=== PATIENT | female | born 1940 | race Caucasian/White ===

== ENCOUNTER 2019-02-28 13:27 | Inpatient (IN) | payer MEDICARE ==
[~2019-02-28] VITALS: Ht 165.1 cm; Wt 64.1 kg
[2019-02-28 13:58] LABS: BASOPHILS % (AUTO) 0.1 % (0.0-5.0); EOSINOPHILS % (AUTO) 0.2 % (0.0-8.0); HEMATOCRIT 40.3 % (36-48); LYMPHOCYTES % (AUTO) 12.2 % (21.0-51.0); MEAN CORPUSCULAR HEMOGLOBIN 32.6 pg (27.0-33.0); MEAN CORPUSCULAR HGB CONC 33.1 g/dL (32.0-36.0); MEAN CORPUSCULAR VOLUME 98.5 fL (79-99); MONOCYTES % (AUTO) 9.1 % (3.0-13.0); NEUTROPHILS % (AUTO) 78.4 % (40.0-77.0); PLATELET COUNT (AUTO) 147 K/uL (130-400); RED BLOOD CELL COUNT(AUTO) 4.09 MIL/uL (4.00-5.50); RED CELL DISTRIBUTION WIDTH 13.6 % (11.0-15.5); WHITE BLOOD COUNT (AUTO) 12.1 K/uL (4.8-10.8)
[2019-02-28 14:09] LABS: APPEARANCE,URINE CLOUDY (CLEAR); BILIRUBIN,URINE NEGATIVE (NEGATIVE); COLOR,URINE YELLOW (YELLOW); GLUCOSE, URINE (UA) NEGATIVE (NEGATIVE); KETONES,URINE 5 mg/dL (NEGATIVE); LEUKOCYTE ESTERASE ,URINE LARGE (NEGATIVE); NITRATE,URINE POSITIVE (NEGATIVE); OCCULT BLOOD,URINE MODERATE (NEGATIVE); PH,URINE 6.5 (5.0-8.0); PROTEIN,URINE 100 mg/dL (NEGATIVE)
[2019-02-28 14:16] LABS: BACTERIA,URINE Many /HPF (None Seen); MUCUS,URINE Few LPF (None Seen); RBC,URINE 0-1 /HPF (0-1); SQUAMOUS EPITHELIAL CELL,UR Rare /HPF (0-2); WBC,URINE >100 /HPF (0-1)
[2019-02-28 14:18] LABS: INR 1.03 (0.85-1.15); PARTIAL THROMBOPLASTIN TIME 24.6 SEC (26.3-35.5); PROTHROMBIN TIME 10.8 SEC (9.6-11.6)
[2019-02-28 14:26] LABS: ALBUMIN 2.6 g/dL (3.5-5.0); BILIRUBIN,TOTAL 0.5 mg/dL (0.2-1.0); TOTAL PROTEIN, SERUM 7.2 g/dL (6.0-8.3)
[2019-02-28] MEDS ORDERED: CEFTRIAXONE SODIUM 1 GM ONE (14:52)
[2019-02-28] MEDS ORDERED: SODIUM CHLORIDE 0.9% 1000ML 1,000 ML IV ONE (14:52)
[2019-02-28] MEDS ORDERED: SODIUM CHLORIDE 0.9% 100 ML IV ONE (14:53)
--- NOTE | 2019-02-28 16:00 | NUR ---
ADMISSION FROM ER. PER SERVICE OF .DR. DAVE. PT HAS HER EYES OPEN . BUT NON VERBAL , MOUTH . LIPS VERY DRY, HOB UP. PER YESSICA TENA INFORMATION . SHE IS STA [place]AL[place] AT THE [facility] AND HAS NOT BEEN EATING , AND UNABLE TO SWALLOW. PT .WILL NOT OPEN HER MOUTH TO CLEAN THE INSIDE, AND WILL TRY TO HIT YOU.. IVF SETUP OF NS AT 85 [facility] AND RESTARTED A PIV TO HER RFA. UNDER ASPECT TECH, DUE TO THE OTHER IV THAT WAS ON HER LT HAND CAME OUT. LT HAND NOTED BRUISED . . REVIEW PLAN OF CARE. AND WILL PLACE ORDERS FOR A SWALLOWING MELANIE T FOR AM. HOB UP. . CALL LIGHT IN REACH FOR DAUGHTER CARE. BED LEVEL DOWN.
[2019-02-28 16:05] VITALS: BP 162/90
--- NOTE | 2019-02-28 17:26 | NUR ---
[facility] HOSES ON.
[2019-02-28] MEDS: SODIUM CHLORIDE 0.9% 1000ML 1,000 ML IV SCH ×2 (18:00→21:02)
[2019-02-28] MEDS ORDERED: QUET50TA55 PO (19:49)
[2019-02-28] MEDS ORDERED: SIMV-43 PO (19:49)
[2019-02-28] MEDS ORDERED: DIVA-76 PO (19:49)
[2019-02-28] MEDS ORDERED: QUET100T70 PO (19:49)
[2019-02-28] MEDS ORDERED: ESCI20TA36 PO (19:49)
[2019-02-28] MEDS ORDERED: ERGO500014 PO (19:49)
[2019-02-28] MEDS ORDERED: MEMA10TA20 PO (19:49)
[2019-02-28] MEDS ORDERED: FLUO20CA30 PO (19:49)
[2019-02-28 20:00] VITALS: BP 151/72
--- NOTE | 2019-02-28 21:05 | NUR ---
ASSESS SHIFT ASSESSMENT DONE, PLEASE REFER TO CHART. NEW IVF BAG HUNG. KEPT RESTED AND COMFORTABLE. CALL LIGHT WITHIN REACH. BED ALARM ON. WILL MONITOR CLOSELY. Addendum: 03/01/19 at 0330 by RAUL URIAS RN RN Amended: Links added.
[2019-03-01] VITALS (7 sets, daily range): BP systolic 112–152; BP diastolic 64–93
--- NOTE | 2019-03-01 02:00 | NUR ---
ROUNDS PT RESTING WELL, FAIRLY ASLEEP. NO DISTRESS NOTED. KEPT RESTED AND COMFORTABLE. WILL MONITOR PT.
[2019-03-01 04:47] LABS: MEAN CORPUSCULAR HEMOGLOBIN 33.3 pg (27.0-33.0); MEAN CORPUSCULAR HGB CONC 33.9 g/dL (32.0-36.0); MEAN CORPUSCULAR VOLUME 98.1 fL (79-99); PLATELET COUNT (AUTO) 131 K/uL (130-400); RED BLOOD CELL COUNT(AUTO) 3.57 MIL/uL (4.00-5.50); RED CELL DISTRIBUTION WIDTH 13.3 % (11.0-15.5); WHITE BLOOD COUNT (AUTO) 10.6 K/uL (4.8-10.8)
[2019-03-01 05:08] LABS: ALBUMIN 2.2 g/dL (3.5-5.0); BILIRUBIN,TOTAL 0.4 mg/dL (0.2-1.0); POTASSIUM 3.7 mmol/L (3.5-5.1); TOTAL PROTEIN, SERUM 6.3 g/dL (6.0-8.3)
[2019-03-01] MEDS: SODIUM CHLORIDE 0.9% 1000ML 1,000 ML IV SCH ×2 (06:09→18:12)
--- NOTE | 2019-03-01 06:10 | NUR ---
ROUNDS PT RESTING WELL, CALM AND QUITE. NO DISTRESS NOTED. KEPT COMFORTABLE. FOR MORE CARE AND MANAGEMENT.
[2019-03-01] MEDS: FAMOTIDINE/PF 20 MG/2 ML VIAL IV SCH (10:03)
--- NOTE | 2019-03-01 10:30 | NUR ---
DYSPHAGIA EVAL COMPLETED. +S/S OF ASPIRATION. RECOMMEND PUREED, NECTAR-THICK LIQUIDS; PILLS CRUSHED WITH APPLESAUCE. RECOMMENDATIONS: DYSPHAGIA THERAPY 3-5X WEEK TO INCREASE ORAL MOTOR STRENGTH AND PHARYNGEAL SWALLOW: LTG#1: Pt WILL TOLERATE LEAST RESTRICTIVE DIET TO MEET NUTRITION/HYDRATION WITH NO S/S OF ASPIRATION. LTG#2: SKILLED EDUCATION Pt/FAMILY/STAFF STG#1: Pt WILL PARTICIPATE IN LARYNGEAL ELEVATION/EXCURSION EXERCISES WITH 80% ACCURACY. STG#2: Pt WILL PARTICIPATE IN TONGUE BASE RETRACTION EXERCISES WITH 80% ACCURACY. STG#3: Pt WILL PARTICIPATE IN ORAL MOTOR EXERCISES WITH 80% ACCURACY. STG#4: Pt WILL PARTICIPATE IN THERAPEUTIC TRIALS OF ADVANCED TEXTURE OF MECHANICAL SOFT AND THIN LIQUIDS WITH NO OVERT S/S OF ASPIRATION. STG#5: PT WILL TOLERATE PUREED, NECTAR-THICK LIQUID DIET WITH NO OVERT S/S OF ASPIRATION. STG#6: SKILLED EDUCATION Pt/FAMILY/STAFF. Addendum: 03/01/19 at 1225 by SHAKIRA MOODY Amended: Links added.
--- NOTE | 2019-03-01 10:45 | NUR ---
COGNITIVE-LINGUISTIC EVAL COMPLETED. Pt PRESENTS WITH MODERATE EXPRESSIVE LANGUAGE DEFICITS. Pt WITH MODERATE COGNITIVE DEFICITS PRESENT (AT BASELINE PER DAUGHTER). -SKILLED SPEECH THERAPY RECOMMENDED TO FOCUS ON EXPRESSIVE LANGUAGE ABILITIES. DAUGHTER REPORTS Pt WAS ABLE TO REQUEST WANTS AND NEEDS INDEPENDENTLY PRIOR TO HOSPITALIZATION. Pt RESIDENT AT A LOCAL ASSISTED LIVING FACILITY. RECOMMENDATIONS: 1.SKILLED SPEECH THERAPY 3-5XWK TARGETING EXPRESSIVE LANGUAGE SKILLS. LTG#1: Pt WILL INCREASE EXPRESSIVE LANGUAGE SKILLS TO EXPRESS WANTS AND NEEDS INDEPENDENTLY. STG#1: Pt WILL LABEL COMMON OBJECTS WITH 80% ACCURACY. STG#2: Pt WILL ANSWER SIMPLE WH QUESTIONS IN 2-3 WORD UTTERANCES WITH 80% ACCURACY. STG#3: Pt WILL INDEPENDENTLY STATE IDENTIFYING INFORMATION WITH 100% ACCURACY. STG#4: Pt WILL COMMUNICATE IN PHRASE LEVEL IN 8/10 TRIALS. Addendum: 03/01/19 at 1234 by ARLINE ESTEVEZ, [facility] Amended: Links added.
--- NOTE | 2019-03-01 10:53 | NUR ---
PT UPDATE Stat MRI of the brain ordered, called [facility] at [phone], stated MRI is down at this time, Nursing will continue to follow up.
[2019-03-01] MEDS: CEFTRIAXONE SODIUM 1 GM IVP SCH (15:18)
--- NOTE | 2019-03-01 17:56 | NUR ---
cm note met with patients daughter Chaka , pt confused. per daughter states pt resides at [facility] ([phone]) danita barbosa is not confused, and is able to walk with a walker, [facility] assist her with bath, and meals, daughter transports her as needed. would like for pt to return back to [facility]. but is open to snf if needed.or recommended by . Addendum: 03/01/19 at 1800 by DAMION ALFARO CM Amended: Links added.
[2019-03-01] MEDS ORDERED: LORAZEPAM 2 MG/ML 1 ML VIAL IVP ONE (18:30)
[2019-03-01] MEDS: DIVALPROEX SODIUM 250 MG TABLET.DR PO SCH (20:21)
[2019-03-01] MEDS: MEMANTINE HCL 5 MG TABLET PO SCH (20:21)
[2019-03-01] MEDS: QUETIAPINE FUMARATE 100 MG TAB PO SCH (20:22)
[2019-03-01] MEDS: SIMVASTATIN 20 MG TABLET PO SCH (20:22)
--- NOTE | 2019-03-01 20:22 | NUR ---
SEDATED PT IS FAIRLY ASLEEP AND UNABLE TO SUSTAIN WAKEFULNESS TO BE ABLE TO TAKE MEDS. PT WAS SEDATED PT WAS GIVEN WITH ATIVAN PRIOR TO MRI DURING THE DAY SHIFT. WILL MONITOR PT.
--- NOTE | 2019-03-02 02:00 | NUR ---
ROUNDS PT STILL FAIRLY ASLEEP/SEDATED. NO DISTRESS NOTED. KEPT UNDISTURBED FOR NOW. WILL MONITOR CLOSELY.
[2019-03-02 04:04] VITALS: BP 155/93
[2019-03-02] MEDS: SODIUM CHLORIDE 0.9% 1000ML 1,000 ML IV SCH ×3 (04:45→19:45)
--- NOTE | 2019-03-02 05:33 | NUR ---
ROUNDS PT MORE EASILY AWAKENED AND FOLLOWS COMMAND AT THIS TIME, BUT STILL NON-COMMUNICATIVE. KEPT RESTED. FOR MORE CARE.
[2019-03-02 08:00] VITALS: BP 186/93
[2019-03-02] MEDS: Escitalopram Oxalate 20 MG PO SCH (09:00)
[2019-03-02] MEDS: ASPIRIN 325MG EC TAB 325 MG TABLET.DR PO SCH (11:05)
[2019-03-02] MEDS: FLUOXETINE HCL 20 MG CAPSULE PO SCH (11:05)
[2019-03-02] MEDS: MEMANTINE HCL 5 MG TABLET PO SCH ×2 (11:06→21:13)
[2019-03-02] MEDS: LISINOPRIL 20 MG TABLET PO SCH (11:06)
[2019-03-02] MEDS: DIVALPROEX SODIUM 250 MG TABLET.DR PO SCH ×2 (11:06→21:13)
[2019-03-02] MEDS: FAMOTIDINE/PF 20 MG/2 ML VIAL IV SCH (11:06)
[2019-03-02] MEDS: QUETIAPINE FUMARATE 25 MG TAB PO SCH (11:06)
[2019-03-02 11:20] VITALS: BP 173/87
[2019-03-02] MEDS: CLOPIDOGREL BISULFATE 75 MG TAB PO SCH (11:35)
--- NOTE | 2019-03-02 12:47 | NUR ---
FOLLOW UP. Pt ASLEEP AT THE TIME OF kiln charger VISIT. Pt CURRENTLY ON PUREED, NECTAR-THICK LIQUIDS. DAUGHTER REPORTS Pt WAS PROVIDED WITH A SMALL SIP OF THIN LIQUIDS WITH +S/S OF ASPIRATION THIS AM BY NURSING. SONOGRAM TECHNICIAN EDUCATED DAUGHTER ON HOW TO REACH NECTAR-THICK LIQUIDS. THERAPEUTIC INTERVENTION WAS NOT PROVED SECONDARY TO Pt SLEEPING DUE TO MEDICATION. RECOMMEND CONTINUED SKILLED SPEECH THERAPY. SONOGRAM TECHNICIAN WILL CONTINUE TO FOLLOW Pt. ALL QUESTIONS ANSWERED AT THIS TIME. Addendum: 03/02/19 at 1252 by ARLINE ESTEVEZ, [facility] Amended: Links added.
[2019-03-02] MEDS: CEFTRIAXONE SODIUM 1 GM IVP SCH (14:20)
[2019-03-02 16:00] VITALS: BP 151/59
[2019-03-02 19:45] VITALS: BP 140/80
[2019-03-02] MEDS: SIMVASTATIN 20 MG TABLET PO SCH (21:13)
[2019-03-02] MEDS: QUETIAPINE FUMARATE 100 MG TAB PO SCH (21:13)
--- NOTE | 2019-03-02 21:15 | NUR ---
MEDS SHIFT ASSESSMENT DONE, PLEASE REFER TO CHART. RE-POSITIONED IN WITH WITH HOB ELEVATED. DUE MEDS ADMINISTERED, CRUSHED AND GIVEN WITH APPLE SAUCE. PT ABLE TO TOLERATE WELL. KEPT RESTED AND COMFORTABLE. WILL MONITOR PT. Addendum: 03/03/19 at 0224 by RAUL URIAS RN RN Amended: Links added.
[2019-03-03 00:24] VITALS: BP 121/74
--- NOTE | 2019-03-03 02:00 | NUR ---
BATHE PCP IN AND GAVE PT A BED BATH. PT UNCOOPERATIVE SO ANOTHER PCP WENT IN TO HELP WITH BATHING. RE-POSITIONED COMFORTABLE IN BED. WILL MONITOR CLOSELY.
--- NOTE | 2019-03-03 03:53 | NUR ---
SKIN NOTED BLOOD ON PT'S GOWN, NOTED SKIN TEAR ON PT'S RT HAND, IN BETWEEN RT THUMB AND RT INDEX FINGER. CLEANSED WITH SALINE, PAT DRY THEN PICTURES TAKEN, PLACED IN CHART. COVERED WOUND WITH NON-ADHESIVE TAPE THEN SECURED WITH KERLIX AND TAPE. PIV NOTED TO BE INFILTRATED, DISCONTINUED SITE WITH CATHETER INTACT. RE-INSERTED G20 TO RT FOREARM THEN CONTINUED IVF OF NS AT 85CC/HR. PT VERY COOPERATIVE AT THIS TIME. KEPT WARM AND DRY. WILL MONITOR PT. Addendum: 03/03/19 at 0537 by RAUL URIAS RN RN Amended: Links added.
[2019-03-03] MEDS: SODIUM CHLORIDE 0.9% 1000ML 1,000 ML IV SCH ×2 (04:15→16:36)
[2019-03-03 04:20] VITALS: BP 130/76
[2019-03-03 05:12] LABS: BASOPHILS % (AUTO) 0.6 % (0.0-5.0); EOSINOPHILS % (AUTO) 2.9 % (0.0-8.0); HEMATOCRIT 33.3 % (36-48); LYMPHOCYTES % (AUTO) 15.8 % (21.0-51.0); MEAN CORPUSCULAR HEMOGLOBIN 33.3 pg (27.0-33.0); MEAN CORPUSCULAR HGB CONC 33.9 g/dL (32.0-36.0); MEAN CORPUSCULAR VOLUME 98.4 fL (79-99); MONOCYTES % (AUTO) 9.6 % (3.0-13.0); NEUTROPHILS % (AUTO) 71.1 % (40.0-77.0); PLATELET COUNT (AUTO) 92 K/uL (130-400); RED BLOOD CELL COUNT(AUTO) 3.38 MIL/uL (4.00-5.50); RED CELL DISTRIBUTION WIDTH 13.3 % (11.0-15.5); WHITE BLOOD COUNT (AUTO) 9.7 K/uL (4.8-10.8)
[2019-03-03 05:27] LABS: ALBUMIN 2.1 g/dL (3.5-5.0); BILIRUBIN,TOTAL 0.5 mg/dL (0.2-1.0); POTASSIUM 3.4 mmol/L (3.5-5.1); TOTAL PROTEIN, SERUM 5.9 g/dL (6.0-8.3)
[2019-03-03 07:00] VITALS: BP 147/77
[2019-03-03] MEDS: Escitalopram Oxalate 20 MG PO SCH (09:00)
[2019-03-03] MEDS: FLUOXETINE HCL 20 MG CAPSULE PO SCH (09:00)
[2019-03-03] MEDS: MEMANTINE HCL 5 MG TABLET PO SCH ×3 (09:00→22:31)
[2019-03-03] MEDS: QUETIAPINE FUMARATE 25 MG TAB PO SCH (09:00)
[2019-03-03] MEDS: DIVALPROEX SODIUM 250 MG TABLET.DR PO SCH ×3 (09:00→22:31)
[2019-03-03] MEDS: FAMOTIDINE/PF 20 MG/2 ML VIAL IV SCH (09:45)
[2019-03-03] MEDS: LISINOPRIL 20 MG TABLET PO SCH (09:45)
[2019-03-03] MEDS: CLOPIDOGREL BISULFATE 75 MG TAB PO SCH (09:46)
[2019-03-03] MEDS: ASPIRIN 325MG EC TAB 325 MG TABLET.DR PO SCH (09:46)
--- NOTE | 2019-03-03 12:34 | NUR ---
LONG-TERM ALTERNATE MEANS OF NUTRITION/HYDRATION RECOMMENDED. PT NOT AROUSING AT THIS TIME. PRETZEL TWISTING MACHINE OPERATOR ATTEMPTED WET TOWEL TO THE FACE, TACTILE AND VERBAL CUES. Pt DID NOT ALERT AND DID NOT PARTICIPATE WITH THERAPEUTIC INTERVENTION. DAUGHTER AT BEDSIDE AT THE TIME OF THE SESSION. DAUGHTER REPORTS Pt HAS NOT BEEN PARTICIPATING IN P.O. AND HAS BE LETHARGIC THROUGH OUT THE DAY. Pt WITH 2 SPOONS OF FOOD IN THE LAST DAYS. PRETZEL TWISTING MACHINE OPERATOR SPOKE TO DAUGHTER ABOUT LONG-TERM ALTERNATE MEANS OF NUTRITION/HYDRATION. PRETZEL TWISTING MACHINE OPERATOR EXPLAINED HOW Pt CAN PARTICIPATE IN THERAPEUTIC TRIALS OF PUREED, NECTAR-THICK LIQUIDS WHEN ALERT/COOPERATIVE AND ABLE TO PARTICIPATE. NO DIRECT P.O. PROVIDED AT THIS TIME. RECOMMENDATIONS: 1. LONG-TERM ALTERNATE MEANS OF NUTRITION/HYDRATION. Addendum: 03/03/19 at 1234 by ARLINE ESTEVEZ, [facility] Amended: Links added.
[2019-03-03 12:46] VITALS: BP 165/77
[2019-03-03] MEDS: LEVOFLOXACIN 500 MG/D5W 100 ML 100 ML IV SCH (15:40)
--- NOTE | 2019-03-03 17:12 | NUR ---
[facility] CONSULT PATIENT ASSESSED REQUESTED: PATIENT PRESENTS WITH SKIN TEAR TO RT HAND; [facility] RECOMMENDATIONS SUBMITTED. Addendum: 03/03/19 at 1713 by DA WILCOX LVN LVN W Amended: Links added.
[2019-03-03 20:00] VITALS: BP 138/80
[2019-03-03] MEDS: SIMVASTATIN 20 MG TABLET PO SCH (21:00)
[2019-03-03] MEDS: QUETIAPINE FUMARATE 100 MG TAB PO SCH (21:00)
--- NOTE | 2019-03-03 23:12 | NUR ---
Cough when INTRODUCE PUREE FOOD. ATTEMPTED TO ADMINISTER CRUSHED MEDICATION MIXED WITH APPLE SAUCE, TRIED 1/2 TEASPOON OF IT TO THE PATIENT, PATIENT COUGH, STOPPED GIVING THE MEDICATION. CALLED TENZIN, INFORMED TENZIN THAT PT CANNOT COUGH WHEN I INTRODUCED APPLE SAUCE. ORDERED NPO, NGT HOWEVER INFORMED TENZIN, MULTIPLE ATTEMPT TO INSERT THE NGT BUT FAILED PT CANNOT TOLERATE ACCORDING TO [facility] RN MD TENZIN MALIK SAID THAT IS FINE, CONSULT TAE FOR PEG PLACEMENT. INFORMED MD DAVE, TAE IS AWARE, MD DAVE ORDERED NPO FOR NOW.,MAINTAINED ON DEY'S POSITION.
[2019-03-03] MEDS ORDERED: ACETAMINOPHEN 650 MG SUPPOSITORY RC ONE (23:57)
[2019-03-04] VITALS (19 sets, daily range): BP systolic 129–177; BP diastolic 70–98
[2019-03-04] MEDS: SODIUM CHLORIDE 0.9% 1000ML 1,000 ML IV SCH (04:22)
[2019-03-04 05:26] LABS: HEMATOCRIT 31.5 % (36-48); MEAN CORPUSCULAR HEMOGLOBIN 33.3 pg (27.0-33.0); MEAN CORPUSCULAR HGB CONC 33.9 g/dL (32.0-36.0); MEAN CORPUSCULAR VOLUME 98.2 fL (79-99); PLATELET COUNT (AUTO) 78 K/uL (130-400); RED BLOOD CELL COUNT(AUTO) 3.21 MIL/uL (4.00-5.50); RED CELL DISTRIBUTION WIDTH 13.4 % (11.0-15.5); WHITE BLOOD COUNT (AUTO) 12.1 K/uL (4.8-10.8)
[2019-03-04 05:49] LABS: ALBUMIN 1.9 g/dL (3.5-5.0); BILIRUBIN,TOTAL 0.7 mg/dL (0.2-1.0); CREATININE 0.9 mg/dL (0.5-1.5); POTASSIUM 3.5 mmol/L (3.5-5.1); TOTAL PROTEIN, SERUM 5.6 g/dL (6.0-8.3)
--- NOTE | 2019-03-04 06:52 | NUR ---
HECTOR DAVE WITH LAB RESULTS AND LAB TEST PENDING FOR CALL BACK
[2019-03-04] MEDS ORDERED: ACETAMINOPHEN 650 MG SUPPOSITORY RC PRN (07:00)
[2019-03-04] MEDS: QUETIAPINE FUMARATE 25 MG TAB PO SCH (09:00)
[2019-03-04] MEDS: ASPIRIN 325MG EC TAB 325 MG TABLET.DR PO SCH (09:00)
[2019-03-04] MEDS: LISINOPRIL 20 MG TABLET PO SCH (09:00)
[2019-03-04] MEDS: CLOPIDOGREL BISULFATE 75 MG TAB PO SCH (09:00)
[2019-03-04] MEDS: FLUOXETINE HCL 20 MG CAPSULE PO SCH (09:00)
[2019-03-04] MEDS: DIVALPROEX SODIUM 250 MG TABLET.DR PO SCH ×2 (09:00→23:00)
[2019-03-04] MEDS: MEMANTINE HCL 5 MG TABLET PO SCH ×2 (09:00→23:00)
[2019-03-04] MEDS: Escitalopram Oxalate 20 MG PO SCH (09:00)
--- NOTE | 2019-03-04 09:04 | NUR ---
CANCEL MBSS. OFFICE NURSE PRACTITIONER ATTEMPTED TO AROUSE Pt WITH LEXUS SCOTT AT BEDSIDE. OFFICE NURSE PRACTITIONER ATTEMPTED A WET TOWEL TO THE FACE WITH Pt NOT AROUSING. Pt WITH ORDER FOR AN MBSS. OFFICE NURSE PRACTITIONER ATTEMPTED TRIALS WITH MAX TACTILE AND VERBAL CUES WITH Pt NOT ATTEMPTING TO OPEN MOUTH OR RESPOND TO CUES. Pt NOT ABLE TO PARTICIPATE IN MBSS AT THIS TIME. LONG-TERM ALTERNATE MEANS OF NUTRITION/HYDRATION IS RECOMMENDED AT THIS TIME SECONDARY TO POOR P.O. AND DECREASED P.O. OFFICE NURSE PRACTITIONER PROVIDED RECOMMENDATIONS TO LEXUS SCOTT AND SHE WAS IN AGREEMENT. OFFICE NURSE PRACTITIONER SPOKE TO LEXUS SMITH 03/03/2019 WHO WAS IN AGREEMENT WELL. OFFICE NURSE PRACTITIONER COORDINATED CARE WITH NURSE DANIEL AT THIS TIME. RECOMMENDATIONS: LONG-TERM ALTERNATE MEANS OF NUTRITION/HYDRATION RE-EVAL WHEN MORE COOPERATIVE AND WANTING TO PARTICIPATE IN P.O. Addendum: 03/04/19 at 0924 by ARLINE ESTEVEZ [facility] ST Amended: Links added.
[2019-03-04] MEDS: FAMOTIDINE/PF 20 MG/2 ML VIAL IV SCH (09:07)
[2019-03-04] MEDS ORDERED: PROPOFOL 10 MG/ML 20ML VIAL IV ONE (12:15)
[2019-03-04] MEDS ORDERED: LIDOCAINE HCL-MPF 2% 5ML VIAL ONE (12:16)
--- NOTE | 2019-03-04 13:17 | NUR ---
PROCEDURE REPORT RECEIVED FROM ANDRÉS WELDON (GI LAB). PATIENT S/P PEG PLACEMENT BY DR. DIOR STRONG. KEEP PATIENT NPO, MAY USE PEG TUBE FOR FEEDINGS AND MEDS. PATIENT STABLE AT THIS TIME.
[2019-03-04] MEDS: LEVOFLOXACIN 500 MG/D5W 100 ML 100 ML IV SCH (14:23)
--- NOTE | 2019-03-04 14:43 | NUR ---
CM Note: Daughter pending to agree for SNF CM met with pt and daughter, discussed MD recommendation for short term placement SNF, pt has a new peg. Daughter verbalized she would like to discuss recommendations w/ her sister first. Daughter in room requested for sister Chaka Palacios to be called also, daughter states Chaka has a MPOA. Called Chaka Palacios [phone], left voicemail. Pending daughter to return call. Daughter pending to agree for SNF placement vs dcp back to [facility]. Primary nurse aware. CM to cont to follow up.
--- NOTE | 2019-03-04 17:00 | NUR ---
RD NOTIFICATION - Tube Feedings Pt admitted for Dehydration, UTI. Pt refusal to participate in MBSS as per WIRE FRAME MAKER. Pt with oropharyngeal dysphagia as per EMR. Pt with PEG placement. RD tube feeding recommendations: Continuous, Jevity 1.5, Goal Rate: 50mls/hr (1800kcal/77gm protein). Initiate at 20mls/h, increase by 5mls Q5hrs to goal. Rec Flushes: 225mls Q6hrs. RD to place recommendations in Pt chart. RN to be notified. Pt LBM 03/02/19. Pt monitored labs: Na 147, Cl 113, Alb 1.9. RD to continue to monitor. Please notify as additional nutrition concerns arise. Thank you. Addendum: 03/04/19 at [address] Amended: Links added.
[2019-03-04] MEDS: QUETIAPINE FUMARATE 100 MG TAB PO SCH (23:00)
[2019-03-04] MEDS: SIMVASTATIN 20 MG TABLET PO SCH (23:00)
[2019-03-05] VITALS: BP 122/61
[2019-03-05 04:00] VITALS: BP 117/62
[2019-03-05 04:50] LABS: BASOPHILS % (AUTO) 0.3 % (0.0-5.0); EOSINOPHILS % (AUTO) 0.5 % (0.0-8.0); HEMATOCRIT 32.3 % (36-48); LYMPHOCYTES % (AUTO) 9.8 % (21.0-51.0); MEAN CORPUSCULAR HEMOGLOBIN 33.2 pg (27.0-33.0); MEAN CORPUSCULAR HGB CONC 33.7 g/dL (32.0-36.0); MEAN CORPUSCULAR VOLUME 98.5 fL (79-99); MONOCYTES % (AUTO) 7.5 % (3.0-13.0); NEUTROPHILS % (AUTO) 81.9 % (40.0-77.0); NUCLEATED RED BLOOD CELLS 0.1 % (0.0-0.19); PLATELET COUNT (AUTO) 93 K/uL (130-400); RED BLOOD CELL COUNT(AUTO) 3.28 MIL/uL (4.00-5.50); RED CELL DISTRIBUTION WIDTH 13.6 % (11.0-15.5); WHITE BLOOD COUNT (AUTO) 11.9 K/uL (4.8-10.8)
[2019-03-05 05:12] LABS: ALBUMIN 1.8 g/dL (3.5-5.0); BILIRUBIN,TOTAL 0.7 mg/dL (0.2-1.0); CREATININE 0.9 mg/dL (0.5-1.5); POTASSIUM 3.2 mmol/L (3.5-5.1); TOTAL PROTEIN, SERUM 5.6 g/dL (6.0-8.3)
[2019-03-05 08:00] VITALS: BP 131/70
[2019-03-05] MEDS: Escitalopram Oxalate 20 MG PO SCH (09:00)
[2019-03-05] MEDS: DIVALPROEX SODIUM 250 MG TABLET.DR PO SCH (09:00)
[2019-03-05] MEDS: ASPIRIN 325MG EC TAB 325 MG TABLET.DR PO SCH (09:00)
[2019-03-05] MEDS: MEMANTINE HCL 5 MG TABLET PO SCH ×2 (10:10→20:57)
[2019-03-05] MEDS: CLOPIDOGREL BISULFATE 75 MG TAB PO SCH (10:10)
[2019-03-05] MEDS: FLUOXETINE HCL 20 MG CAPSULE PO SCH (10:10)
[2019-03-05] MEDS: QUETIAPINE FUMARATE 25 MG TAB PO SCH (10:11)
[2019-03-05] MEDS: LISINOPRIL 20 MG TABLET PO SCH (10:11)
[2019-03-05] MEDS: FAMOTIDINE/PF 20 MG/2 ML VIAL IV SCH (10:11)
[2019-03-05] MEDS: SODIUM CHLORIDE 0.9% 1000ML 1,000 ML IV SCH (10:12)
--- NOTE | 2019-03-05 11:31 | NUR ---
FOLLOW UP COMPLETED. Pt NPO,PEG FEEDINGS. Pt RESTING IN BED. HOLD TREATMENT FOR TODAY. DIRECT MARKETING COORDINATOR WILL FOLLOW UP WITH Pt ON FRIDAY. Addendum: 03/05/19 at 1133 by ARLINE ESTEVEZ, [facility] Amended: Links added.
[2019-03-05 11:44] VITALS: BP 121/65
--- NOTE | 2019-03-05 13:23 | NUR ---
CM Note: [facility] pending acceptance CM spoke to daughter Chaka Palacios, stated visited [facility] and [facility] today and have made a decision, telephone consent ENZO obtained for [facility]. Faxed order, clinicals, [facility], confirmation received. Spoke to Leonor will come and eval pt. Pt pending acceptance. Primary nurse aware. CM to cont to follow up.
[2019-03-05] MEDS: LEVOFLOXACIN 500 MG/D5W 100 ML 100 ML IV SCH (15:52)
[2019-03-05 16:00] VITALS: BP 106/62
[2019-03-05] MEDS ORDERED: LIDOCAINE HCL-MPF 1% 2ML VIAL IV PRN (16:00)
[2019-03-05] MEDS ORDERED: POTASSIUM CHLORIDE 20MEQ/100ML 100 ML IV PRN (16:00)
[2019-03-05] MEDS: VALPROATE SOD 250 MG/5 ML (PO) PEG SCH (20:57)
[2019-03-05] MEDS: SIMVASTATIN 20 MG TABLET PO SCH (20:57)
[2019-03-05 21:02] VITALS: BP 126/54
--- NOTE | 2019-03-05 23:15 | NUR ---
IV INFILTRATED RFA INFILTRATED. IV FLUIDS STOPPED. PLACED A 20G TO LFA AND CONTINUED FLUIDS. RIGHT EXTREMITY ELEVATED WITH A PILLOW. DC IV ON RFA, CATHETER INTACT.
--- NOTE | 2019-03-05 23:50 | NUR ---
WOUND CARE PROVIDED WOUND CARE TO RIGHT HAND. CLEANED SITE WITH SALINE, APPLIED MEDIHONEY AND WRAPPED WITH GAUZE. PATIENT TOLERATED WELL.
[2019-03-06] MEDS ORDERED: HONEY 1 APPL/ML TUBE TP ONE (00:02)
[2019-03-06 00:16] VITALS: BP 123/78
[2019-03-06 04:22] VITALS: BP 101/58
[2019-03-06 08:00] VITALS: BP 125/66
[2019-03-06] MEDS: Escitalopram Oxalate 20 MG PO SCH (09:00)
[2019-03-06] MEDS ORDERED: ASPIRIN 325 MG TABLET NG SCH (09:00)
[2019-03-06] MEDS: FLUOXETINE HCL 20 MG CAPSULE PO SCH (09:32)
[2019-03-06] MEDS: CLOPIDOGREL BISULFATE 75 MG TAB PO SCH (09:32)
[2019-03-06] MEDS: MEMANTINE HCL 5 MG TABLET PO SCH (09:32)
[2019-03-06] MEDS: LISINOPRIL 20 MG TABLET PO SCH (09:33)
[2019-03-06] MEDS: FAMOTIDINE/PF 20 MG/2 ML VIAL IV SCH (09:33)
[2019-03-06] MEDS: VALPROATE SOD 250 MG/5 ML (PO) PEG SCH (09:33)
--- NOTE | 2019-03-06 10:00 | NUR ---
[facility]: Spoke derek Castillo this am, she mentions that pt has been accepted to their facility when ready for dc. Primary nurse and pt's Dtr Lela updated this am regarding [facility] acceptance. Informed both primary nurse and dtr that we still need for Md to round and give dc orders if Md determines pt is ready for dc. Pt to go via EMS, [facility] form in chart, nurse aware.
[2019-03-06 11:53] VITALS: BP 97/52
[2019-03-06] MEDS: LEVOFLOXACIN 500 MG/D5W 100 ML 100 ML IV SCH (15:21)
[2019-03-06 16:00] VITALS: BP 130/61
[2019-03-06] MEDS ORDERED: LACTULOSE 20 GM/30 ML UDCUP ONE (17:27)
[2019-03-06] MEDS ORDERED: LACTULOSE 20 GM/30 ML UDCUP PO SCH (17:30)
--- NOTE | 2019-03-06 17:52 | NUR ---
Patient given Lactulose via PEG tube. Residual 20cc. Patient verbalized "water is cold". Tolerated well. Patient discharged in stable condition. Patient's both daughter's given discharge instruction and instructed care to continue at [facility]. Reinforced Instructed on signs symptoms of stroke, facial drooping, slurred speech and significant changes in mental status. wound dressing to right hand removed, Cleansed wound to right plantar with NS, applied medihoney, covered with 4x4 gauze and secured with paper tape. Daughter with no other questions or concerns.
[2019-03-08] MEDS ORDERED: ERGOCALCIFEROL (VITAMIN D2) 50,000 UNIT CAPSULE PO SCH (09:00)
== END 2019-03-06 18:15 | DRG 64 ==
LOC: EDH 13:27 → 3DH 14:58 → OBSVTOIN 14:58 → 3BH 19:31
PROVIDERS: ADMIT Family Medicine; ATTEND Family Medicine
PROC: 0DH63UZ Insertion of Feeding Device into Stomach, Percutaneous Approach (ICD-10-PCS; principal; 2019-03-04)
DX: I63.9 Cerebral infarction, unspecified (principal); G93.41 Metabolic encephalopathy; N39.0 Urinary tract infection, site not specified; I69.354 Hemiplegia and hemiparesis following cerebral infarction affecting left non-dominant side; E44.0 Moderate protein-calorie malnutrition; F03.90 Unspecified dementia, unspecified severity, without behavioral disturbance, psychotic disturbance, mood disturbance, and anxiety; R13.12 Dysphagia, oropharyngeal phase; E78.5 Hyperlipidemia, unspecified; E86.0 Dehydration; I10 Essential (primary) hypertension; Z16.19 Resistance to other specified beta lactam antibiotics; Z66 Do not resuscitate
CPT/HCPCS: 36415; 43246; 70450; 70551; 71045; 80053; 81001; 82550; 82948; 83735; 84484; 85025; 85027; 85610; 85730; 87040; 87077; 87088; 87186; 92522; 92610; 93005; 93880; A4606; C8929; G0378; J0696; J1956; J2060; J2704; J3480; J3490; J7030

== ENCOUNTER 2023-09-29 12:02 | Emergency (ER) | payer MEDICARE ==
[~2023-09-29] VITALS: Ht 167.6 cm; Wt 54.4 kg
[~2023-09-29 12:02] MED LIST: DIVA-76 PO; ERGO500014 PO; ESCI20TA38 PO; FLUO20CA30 PO; MEMA10TA21 PO; QUET100T34 PO; QUET50TA24 PO; SIMV-43 PO
[2023-09-29] MEDS ORDERED: DIATR MEGLU/DIATRIZOATE SODIUM 30 ML BOTTLE ONE (13:55)
[2023-09-29 15:25] VITALS: BP 110/59; PULSE 58; RESP 16; O2SAT 98
== END 2023-09-29 16:17 | disposition home or self-care (01) ==
LOC: EDH 12:02
DX: K94.23 Gastrostomy malfunction (principal); I10 Essential (primary) hypertension; E78.00 Pure hypercholesterolemia, unspecified; F02.80 Dementia in other diseases classified elsewhere, unspecified severity, without behavioral disturbance, psychotic disturbance, mood disturbance, and anxiety; K21.9 Gastro-esophageal reflux disease without esophagitis; Z79.899 Other long term (current) drug therapy; Z98.890 Other specified postprocedural states
CPT/HCPCS: 99283; 74018; Q9963